=== PATIENT | female | born 1990 ===

== ENCOUNTER 2018-09-27 21:06 | Emergency (ER) | payer OTHER, MEDICAID ==
[2018-09-27 21:41] VITALS: BMI 23.0
[2018-09-27 22:29] LABS: BASO % 0.2 % (0.0-2.0); EOS # 0.1 K/uL (0.0-0.7); EOS % 0.9 % (0.0-4.0); HEMOGLOBIN 10.3 g/dL (12.0-16.0); LYMPH # 0.6 K/uL (1.0-4.3); LYMPH % 6.1 % (20.0-40.0); MEAN CELL VOLUME 87.2 fl (81.0-99.0); MEAN CORPUSCULAR HEMOGLOBIN 28.3 pg (27.0-31.0); MEAN CORPUSCULAR HGB CONC 32.5 g/dL (33.0-37.0); MEAN PLATELET VOLUME 8.8 fl (7.2-11.7); MONO # 0.9 K/uL (0.0-0.8); MONO % 10.2 % (0.0-10.0); NEUT # 7.6 K/uL (1.8-7.0); NEUT % 82.6 % (50.0-75.0); PLATELET COUNT 202 K/uL (130-400); RBC 3.64 Mil/uL (3.80-5.20); RED CELL DISTRIBUTION WIDTH 14.7 % (11.5-14.5); WHITE BLOOD COUNT 9.2 K/uL (4.8-10.8)
[2018-09-27 22:40] LABS: ALBUMIN 3.8 g/dL (3.5-5.0); ALT/SGPT 21 U/L (9-52); AST/SGOT 26 U/L (14-36); BLOOD UREA NITROGEN 8 mg/dl (7-17); CALCIUM 9.1 mg/dL (8.4-10.2); GFR NON-AFRICAN AMERICAN > 60
[2018-09-27 22:41] LABS: SQUAMOUS EPITHIAL < 1 /hpf (0-5); URINE BACTERIA MANY (<OCC); URINE BILIRUBIN NEGATIVE (NEGATIVE); URINE CLARITY CLOUDY (Clear); URINE COLOR YELLOW (YELLOW); URINE GLUCOSE (UA) NEG (NEGATIVE); URINE LEUKOCYTE ESTERASE LARGE Leu/uL (Negative); URINE PROTEIN NEGATIVE (NEGATIVE)
[2018-09-27 22:45] LABS: URINE BLOOD TRACE (NEGATIVE)
[2018-09-27 23:13] LABS: ANISOCYTOSIS MODERATE; BANDS 4 % (0-2); LYMPHOCYTE 8 % (20-50); MONOCYTE 13 % (0-10); NEUTROPHIL 75 % (42-75); PLATELET ESTIMATE NORMAL (NORMAL); POIKILOCYTOSIS SLIGHT; TOTAL CELLS COUNTED 100
[2018-09-27 23:14] LABS: HYPOCHROMIC SLIGHT
[2018-09-28 04:23] VITALS: BP 105/50; PULSE 83; RESP 20; TEMP 99.9; O2SAT 100
--- NOTE | 2018-09-28 11:11 | US ---
Date of service: 09/27/2018 PROCEDURE: Limited obstetrical ultrasound and biophysical profile HISTORY: Dating US, BPP, EFW COMPARISON: None TECHNIQUE: Standard protocol for this study/examination. FINDINGS: Cephalic presentation. Fundal placenta. No evidence of abruption or previa LMP: Unknown Gestational age derived from the following biometric parameters 30 weeks 3 days. ECTOR 12/03/2018 Biparietal diameter 8.08 cm Head circumference 28.22 cm Abdominal circumference 24.69 cm Femur length 5.56 cm Estimated weight 1400 g Calculated cardiac rate 153 beats per min. Closed cervix measuring 5.35 cm FINDINGS: Biophysical profile score 8/8 Based on the followin. breathing movements: 2/2 2. Gross body movement: 2/2 3. tone: 2/2 4. Qualitative amniotic fluid index: 2/2 IMPRESSION: Thirty weeks 3 days live intrauterine gestation. Concordance cannot be ascertained based in the absence of a reliable/ known LMP Biophysical profile score 8/8
--- NOTE | 2018-09-28 11:14 | OBHP ---
Datetime: 09/27/2018 22:00 IP Adm Impression: , intrauterine ; No Active Labor IP Admit Plan: Observation/Evaluation Admit Comment, IP Provider: 28 y/o, , with LMP 03/2018 presents to [facility] because she reports feel ing movements. Patient denies doing any test at home and reports she just found out t hat she is . She reports FM for past 1 month. Denies LOF, VB or CTx. Pt also had subjectiuve fever of 100.5 at home but denies any chills, headache, CP, SOB, nausea, vomiting, diarrhea, urinary symptoms or vaginal discharge. care: None PMHx: Denies PSHx: Denies OBHx: 1 x Allergies: NKDA Medications: None F/H: Denies SOcalHx: Denies PE Gen: NAD Chest: RRR, S1S2 present Lungs: CTAB Abdomen: Gravid, soft, NT Ext: No pedal edema A/P: 28 y/o, , with LMP 03/2018, presents for evaluation. -Newly disgnsoed pregnnacy, No care -EFM and toco monitoring -FHR present, mod variabilty, + Accels, No decels, NO CTX on toco - Dating US, EFW and BPP - CBC, CMP, UA stat - Observation 12:00 AM: US Ob reviewed showed 30 Wks +/- 3 days, IUP, with EFW 3lb 1 oz, BPP 8/8. UA consistet w ith UTI. Patient given Macrobid 100 mg BID x 1 week. Patient to F/u with [facility] for pranatal care. Yamilet ent to be discharged home with ER and labor precautions. patient verbalized understanding. Case discussed with attending Augustus Willson, PGY1 Pelvic Type - PN: Not Done Extremities - PN: Normal Abdomen - PN: Normal Back - PN: Normal Breast - PN: Not Done Lungs - PN: Normal Heart - PN: Normal Thyroid - PN: Not Done Neurologic - PN: Normal HEENT - PN: Normal General - PN: Normal FHR - Baseline A Provider: 150 Contraction Comments Provider: Absent IP Hx Assessment: No Care Vital Signs Provider: Reviewed; Within Normal Limits IP Chief Complaint: evaluation NICHD Variability Prov Fetus A: Moderate 6-25bpm NICHD Accel Fetus A IP Provider: 10X10 FHR Category Provider Fetus A: Category I NICHD Decel Fetus A IP Provider: None Genitourinary Exam: Not Done DTRs - PN: Not Done
== END 2018-09-28 | disposition home or self-care (01) ==
LOC: H.EROB2 21:06
DX: O26.92 Pregnancy related conditions, unspecified, second trimester (principal); R50.9 Fever, unspecified; O09.32 Supervision of pregnancy with insufficient antenatal care, second trimester; Z3A.30 30 weeks gestation of pregnancy

== ENCOUNTER 2018-12-09 21:36 | Inpatient (IN) | payer MEDICAID, OTHER ==
[2018-12-09 21:48] VITALS: BMI 28.3
--- NOTE | 2018-12-09 23:17 | OBHP ---
Datetime: 12/09/2018 22:56 IP Adm Impression: Term, intrauterine IP Admit Plan: Admit to unit; Initiate labor induction protocol Admit Comment, IP Provider: 28 yo at 40+6 wks with EDC 12/03/2018 by 30+3 wks u/s done throu [facility] on 09/27/2018. Pt reports that she didn't know that she was until around 13 weeks b ecause she was spotting monthly (?). Pt reports that she went to an clinic around 8 and was told she was 13 weeks at that time and it was too late to have an . Pt reports thaht she didn't go to prental care because she didn't have insurance. Pt reports that she came to [facility] because she has a friend who works in OB who told her she shuld be delivere d by 41 weeks. Pt denies contractions, vaginal bleeding, LOF, and reports movement. Pt went t o [place] for prental care for her first baby. 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 Will order labs and UDS. FHT reactive. GBS unknown. Will start induction with cervidil. Extremities - PN: Normal Abdomen - PN: Normal Lungs - PN: Normal Heart - PN: Normal Neurologic - PN: Normal General - PN: Normal FHR - Baseline A Provider: 120's Membranes, Provider: Intact Contraction Comments Provider: irritability EGA AdmitDate IP: 40.6 Vital Signs Provider: Reviewed IP Chief Complaint: Other NICHD Variability Prov Fetus A: Moderate 6-25bpm NICHD Accel Fetus A IP Provider: 15X15 FHR Category Provider Fetus A: Category I NICHD Decel Fetus A IP Provider: None Dilatation, Provider: 0 Effacement, Provider: 0 Station, Provider: -3 Genitourinary Exam: Normal
--- NOTE | 2018-12-09 23:21 | OBADHP ---
Datetime: 12/09/2018 23:17 IP Chief Complaint Other: Induction of labor IP Adm Impression Other: Late term Admit Comment, IP Provider: 28 yo at 40+6 wks with EDC 12/03/2018 by 30+3 wks u/s done throu [facility] on 09/27/2018. Pt reports that she didn't know that she was until around 13 weeks b ecause she was spotting monthly (?). Pt reports that she went to an clinic around 8 and was told she was 13 weeks at that time and it was too late to have an . Pt reports thaht she didn't go to prental care because she didn't have insurance. Pt reports that [facility] she has a friend who works in OB who told her she shuld be delivere d by 41 weeks. Pt denies contractions, vaginal bleeding, LOF, and reports movement. Pt went t o [place] for prental care for her first baby. 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 Will order labs and UDS. FHT reactive. GBS unknown. Will start induction with cervidil. Extremities - PN: Normal Abdomen - PN: Normal Lungs - PN: Normal Heart - PN: Normal Neurologic - PN: Normal General - PN: Normal FHR - Baseline A Provider: 120's Membranes, Provider: Intact IP Chief Complaint: Other NICHD Variability Prov Fetus A: Moderate 6-25bpm NICHD Accel Fetus A IP Provider: 15X15 FHR Category Provider Fetus A: Category I NICHD Decel Fetus A IP Provider: None Dilatation, Provider: 0 Effacement, Provider: 0 Station, Provider: -3 Genitourinary Exam: Normal EGA AdmitDate IP: 41.0 IP Admit Plan: Admit to unit; Initiate labor induction protocol Datetime: 12/09/2018 22:56 Contraction Comments Provider: irritability Vital Signs Provider: Reviewed IP Adm Impression: Term, intrauterine Datetime: 09/27/2018 22:00 Pelvic Type - PN: Not Done Back - PN: Normal Breast - PN: Not Done Thyroid - PN: Not Done HEENT - PN: Normal IP Hx Assessment: No Care DTRs - PN: Not Done
[2018-12-09] MEDS: Lactated Ringer's 1,000 ML IV SCH (23:44)
[2018-12-10 00:08] LABS: BASO % 0.2 % (0.0-2.0); EOS # 0.1 K/uL (0.0-0.7); EOS % 0.9 % (0.0-4.0); HEMOGLOBIN 9.6 g/dL (12.0-16.0); LYMPH # 1.4 K/uL (1.0-4.3); LYMPH % 13.1 % (20.0-40.0); MEAN CORPUSCULAR HEMOGLOBIN 25.2 pg (27.0-31.0); MEAN CORPUSCULAR HGB CONC 32.1 g/dL (33.0-37.0); MEAN PLATELET VOLUME 9.9 fl (7.2-11.7); MONO # 0.9 K/uL (0.0-0.8); NEUT # 8.6 K/uL (1.8-7.0); NEUT % 77.8 % (50.0-75.0); NRBC % 0.1 % (0.0-0.0); RBC 3.81 Mil/uL (3.80-5.20); RED CELL DISTRIBUTION WIDTH 16.1 % (11.5-14.5); WHITE BLOOD COUNT 11.1 K/uL (4.8-10.8)
[2018-12-10 00:12] LABS: MEAN CELL VOLUME 78.5 fl (81.0-99.0)
[2018-12-10 00:29] LABS: BARBITURATES, UR NEGATIVE (NEGATIVE); BENZODIAZEPINES, UR NEGATIVE (NEGATIVE); OPIATES, UR NEGATIVE (NEGATIVE); PHENCYCLIDINE, UR NEGATIVE (NEGATIVE)
[2018-12-10] MEDS ORDERED: Nalbuphine HCL 10 mg/ml Ampule IVP PRN (03:05)
[2018-12-10] MEDS: Lactated Ringer's 1,000 ML IV SCH ×3 (05:00→07:41)
[2018-12-10] MEDS ORDERED: Bupivacaine HCl 0.25% PF (10 ml) Inj ONE (06:27)
[2018-12-10] MEDS ORDERED: Fentanyl/Bupivacaine HCl 250 ML EPI ONE (06:27)
[2018-12-10] MEDS ORDERED: Oxytocin 30 UNIT in NS 500 ml 30 UNITS/500 ML BAG IV ONE ×2 (10:15→11:55)
--- NOTE | 2018-12-10 10:28 | OBPN ---
Datetime: 12/10/2018 10:18 IP Progress Impression: Normal progression of labor IP Informed Consent Obtain: Vaginal Delivery IP Procedures: Artificial ROM; Sterile Vag Exam IP Progress Plan: Continue present management Membranes, Provider: Ruptured Amniotic Fluid Color, Provider: Bloody Contraction Comments Provider: q 1-3 mins FHR - Baseline A Provider: 145 IP Progress Note Comment: Patient feeling comfortable, 5cm and ruptured FHR = 145 mod sury, no accels, +early decelerations TOCO = contraction q 1-3 mins A/P 1. Patient now 5cm and ruptured 2. CEFM and TOCO 3. Re-evaluate as needed Vital Signs Provider: Reviewed; Within Normal Limits NICHD Variability Prov Fetus A: Moderate 6-25bpm Dilatation, Provider: 5 Effacement, Provider: 50 Station, Provider: -1 NICHD Decel Fetus A IP Provider: Early Datetime: 12/09/2018 23:17 NICHD Accel Fetus A IP Provider: 15X15 FHR Category Provider Fetus A: Category I
[2018-12-10] MEDS ORDERED: Oxycodone/Acetaminophen 5/325 mg Tab PO PRN ×2 (14:53→19:44)
[2018-12-10] MEDS ORDERED: Benzocaine/Menthol SPRAY TOP PRN ×2 (14:53→19:44)
--- NOTE | 2018-12-10 14:54 | OBDS ---
DELIVERY PERSONNEL Delivery Doctor: Gume Barillas MD Anesthesiologist: Candi Rinaldi MD MATERNAL INFORMATION Delivery Anesthesia: Epidural Medications in Delivery: pitocin 30 units in 500 ml Provider Comments: of live infant over intact perineum, MARQUIS presentation, followed by shoulders and rest of infant atraumatically, mouth and nose suctioned on mother's chest, cord clamped and cut, cord blood obtained, placenta delivered spontaneously, fundus firm, EBL = 100mL, second degree lacer ation repaired with 2-0 vicryl rapide and right labial laceration repaired with same stich, pt tolera kasi procedure well LABOR SUMMARY EDC: 12/03/2018 00:00 No. Babies in Womb: 1 Attempted: No Labor Anesthesia: Epidural LABOR INFORMATION Reason for Induction: Postterm; Other Reason for Induction Other: Pt uncertain of EDC. Onset of Labor: 12/10/2018 11:00 Complete Dilatation: 12/10/2018 13:05 Cervical Ripening Agents: Cervidil Oxytocin: N/A Group B Beta Strep: Not Done Antibiotics # of Doses: 0 Antibiotics Time of Last Dose: N/A Steroids Given: None Reason Steroids Not Administered: Not Applicable MEMBRANES Membranes Rupture Method: Artificial Rupture of Membranes: 12/10/2018 09:46 Length of Rupture (hrs): 4.80 Amniotic Fluid Color: Clear Amniotic Fluid Amount: Large Amniotic Fluid Odor: Foul (Annotations: Vaginal odor present prior to AROM.) STAGES OF LABOR Stage 1 hrs: 2 Stage 1 min: 5 Stage 2 hrs: 1 Stage 2 min: 29 Stage 3 hrs: 0 Stage 3 min: 4 Total Time in Labor hrs: 3 Total Time in Labor min: 38 VAGINAL DELIVERY Episiotomy: None BABY A INFORMATION Delivery Date/Time: 12/10/2018 14:34 Method of Delivery: Vaginal Born in Route : No : N/A Forceps: N/A Vacuum Extraction: N/A Shoulder Dystocia : No SHOULDER DYSTOCIA BABY A Delivery Date/Time: 12/10/2018 14:34 PRESENTATION/POSITION BABY A Presentation: Cephalic Cephalic Presentation: Vertex Vertex Position: Left Occipital Anterior Breech Presentation: N/A PLACENTA INFORMATION BABY A Placenta Delivery Time : 12/10/2018 14:38 Placenta Method of Delivery: Spontaneous Placenta Status: Delivered SCORES BABY A Heart Rate 1 min: >100 bpm Resp Effort 1 min: Good Cry Reflex Irritability 1 min: Cough or Sneeze or Pulls Away Muscle Tone 1 min: Active Motion Color 1 min: Body [place], Extremities Blue Resuscitation Effort 1 min: N/A SCORE 1 MIN: 9 Heart Rate 5 min: >100 bpm Resp Effort 5 min: Good Cry Reflex Irritability 5 min: Cough or Sneeze or Pulls Away Muscle Tone 5 min: Active Motion Color 5 min: Body [place], Extremities Blue Resuscitation Effort 5 min: N/A SCORE 5 MIN: 9 INFANT INFORMATION BABY A Gestational Age at Delivery: 41.0 Gestational Status: Post-term Outcome : Liveborn Condition : Stable Sex: Male IDENTIFICATION/MEDS BABY A ID Band Number: [id number] ID Band Location: Left Leg; Left Arm CORD INFORMATION BABY A No. 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
[2018-12-10 20:53] LABS: BASO % 0.1 % (0.0-2.0); EOS # 0.1 K/uL (0.0-0.7); EOS % 0.3 % (0.0-4.0); HEMOGLOBIN 8.7 g/dL (12.0-16.0); LYMPH # 1.1 K/uL (1.0-4.3); LYMPH % 6.6 % (20.0-40.0); MEAN CELL VOLUME 78.7 fl (81.0-99.0); MEAN CORPUSCULAR HEMOGLOBIN 25.3 pg (27.0-31.0); MEAN CORPUSCULAR HGB CONC 32.2 g/dL (33.0-37.0); MEAN PLATELET VOLUME 9.7 fl (7.2-11.7); MONO # 1.6 K/uL (0.0-0.8); MONO % 9.9 % (0.0-10.0); NEUT # 13.6 K/uL (1.8-7.0); NEUT % 83.1 % (50.0-75.0); PLATELET COUNT 227 K/uL (130-400); RBC 3.43 Mil/uL (3.80-5.20); RED CELL DISTRIBUTION WIDTH 16.1 % (11.5-14.5); WHITE BLOOD COUNT 16.4 K/uL (4.8-10.8)
[2018-12-10 22:09] LABS: BANDS 4 % (0-2); EOSINOPHIL 1 % (0-7); LYMPHOCYTE 10 % (20-50); MONOCYTE 10 % (0-10); NEUTROPHIL 75 % (42-75); PLATELET ESTIMATE NORMAL (NORMAL); TOTAL CELLS COUNTED 100
[2018-12-10 22:10] LABS: ANISOCYTOSIS MODERATE; HYPOCHROMIC SLIGHT; MICROCYTOSIS MODERATE; POIKILOCYTOSIS SLIGHT
[2018-12-10 22:11] LABS: BURR CELLS SLIGHT
--- NOTE | 2018-12-11 08:00 | OBPPN ---
Datetime: 12/11/2018 05:19 PP Pain Prov: Within normal limits PP Nausea Prov: Denies PP Flatus Prov: Yes PP BM Prov: No PP Breasts Prov: Not Done PP Heart Prov: Normal PP Lungs Prov: Normal PP Abdomen/Uterus Prov: Normal PP Lochia Prov: Normal PP Vulva/Perineum Prov: Normal PP CVA Tenderness Prov: Normal PP Extremities Prov: Normal PP C/S Incision Prov: Not Applicable PP Progress Prov: Normal PP Comments Phys Exam Prov: See note PP Impression Prov: Normal progression PP Plan Prov: Continue present management PP Progress Note Prov: S: 28 YO female , S/P NVD with PPD1. Patient seen and examined at bedside this morning. Patient has no acute complaints, reports that the pain is controlled with pain medicat ion. Patient is ambulating w/o difficulties. Pt is bottle feeding, she is tolerating regular diet. Lo len like menses in volume. +Flatus, -BM. Denies fevers, chills, dizziness, chest pain, SOB, N/V/D, h ematuria or dysuria. Pt would like circumcision VS: stable GEN: NAD Cardio: RRR, S1S2 present, no murmurs noted Lungs: clear breath sounds b/l, no wheezing Abdomen: BS+, appropriate tenderness to palpation. Uterus is firm and at the level of the umbilicu s. EXT: No edema, Shaka's negative NEURO/PSYCH: AAOx3, no grossly focal deficits, preserved affect and mood. A/P: 28 YO female , S/P NVD with PPD1. Pt is stable, doing well, afebrile, tolerating pain with med ication, hemodynamically stable. -Circumcision -encouraged ambulation -Motrin 600mg po q6h for pain as per pain scale -Encourage -Continue vit Ysabri PGY1 Case discussed with attending [facility]. Pt seen on rounds agree with note MAHNDO Vital Signs Provider PP: Reviewed; Within Normal Limits
[2018-12-11] MEDS ORDERED: Multivitamin With Minerals Tab PO SCH (09:00)
[2018-12-11] MEDS: Multivitamin With Minerals Tab PO SCH (09:35)
[2018-12-12] MEDS: Multivitamin With Minerals Tab PO SCH (08:07)
--- NOTE | 2018-12-12 09:26 | OBPPN ---
Datetime: 12/12/2018 05:25 PP Pain Prov: Within normal limits PP Nausea Prov: Denies PP Flatus Prov: Yes PP BM Prov: No PP Breasts Prov: Not Done PP Heart Prov: Normal PP Lungs Prov: Normal PP Abdomen/Uterus Prov: Normal PP Lochia Prov: Normal PP Vulva/Perineum Prov: Normal PP CVA Tenderness Prov: Normal PP Extremities Prov: Normal PP C/S Incision Prov: Not Applicable PP Progress Prov: Normal PP Comments Phys Exam Prov: See Note PP Impression Prov: Normal progression PP Plan Prov: Discharge PP Progress Note Prov: 28 YO female , S/P NVD with PPD2. Patient seen at bedside today. No compl ains for today. She report pain is tolerable with pain medication. Patient is ambulating w/o difficul ties. Pt is bottle feeding, she is tolerating regular diet. Lochia like menses in volume. +Flatus, -B M. Denies fevers, chills, dizziness, chest pain, SOB, N/V/D, hematuria or dysuria. VS: stable GEN: NAD Cardio: RRR, S1S2 present, no murmurs noted Lungs: clear breath sounds b/l, no wheezing Abdomen: BS+, appropriate tenderness to palpation. Uterus is firm below the level of the umbilicus . EXT: No edema, Shaka's negative NEURO/PSYCH: AAOx3, no grossly focal deficits, preserved affect and mood. A/P: 28 YO female , S/P NVD with PPD2. Pt is stable, doing well, afebrile, tolerating pain with med ication, hemodynamically stable. -encouraged ambulation -Motrin 600mg po q6h for pain as per pain scale -Encourage -Continue vit -Will discharge today - Patient need to follow up with PCP for post care in 4-6wk Ysabri PGY1 Case discussed with attending Patient was seen with the resident I agree with the note Vital Signs Provider PP: Reviewed; Within Normal Limits
--- NOTE | 2018-12-12 09:26 | OBDCSUM ---
Datetime: 12/12/2018 05:28 Discharged to, Provider: Home Follow up at, Provider: julia Fagan Instr Activity: Normal activity; May be up to bathroom; May be up for meals; May Shower Disch Instr Diet: Regular Discharge Instructions, Provider: Routine instructions given Discharge Diagnosis, Provider: Term Delivered Discharge Time: 12/12/2018 10:00 Follow up in weeks, Provider: 4-6 week Disch Activity Restrictions: No exercising; No lifting; Minimize walking; Minimize stair-climbing; N o sexual activity; Nothing in vagina - [place], tampons, douche Discharge Comment, Provider: Diagnosis: 28 y/o s/p NVD of a viable baby male on 12/10/18 with EGA: 41 weeks. : Male, [id number] Post- D/C Summary: Patient did not have care. But there was no complication during delivery and post care. Lochia equal menses in volume. Pt able to pass gas, ambulate and pass urine. Tolerate regular diet, no SHAY, CP, SOB, N/V, fever or other acute complaint at this time. Fundu s firm below umbilicus level. Pt is hemodynamically stable. H/H : 8.7/27.0 Discharge Instructions given to patient: Patient does not want to breast feed but, breast feeding is encouraged PNV 1 tab PO daily May take Ibuprofen OTC 600mg Q 6h prn for mild-mod pain if needed ED precautions: If excessive bleeding, pain that does not get relief, fever >100.4, palpitations, SOB, CP or other concerning symptom go to the ED PT was urged if feeling sad, mood swing, depression, neglect of baby, suicidal thoughts, homicidal thoughts go to ER or call 911 for help Pt should go to her Primary care doctor if have difficulty with breast feeding F/U in 4-6 week for PP visit with you ANADGeorgia Salas PGY1 Case discussed with Attending Patient was seen with the resident I agree with the note
[2018-12-12 22:31] VITALS: BP 104/60; PULSE 64; RESP 18; TEMP 97.9; O2SAT 100
== END 2018-12-12 13:50 | disposition home or self-care (01) | DRG 373 ==
LOC: H.EROB2 21:36 → H.L&D 22:45 → H.OB/GYN 12-10 18:26
PROVIDERS: ADMIT Obstetrics & Gynecology; ATTEND Obstetrics & Gynecology
PROC: 4A1HXCZ Monitoring of Products of Conception, Cardiac Rate, External Approach (ICD-10-PCS; 2018-12-09)
PROC: 10E0XZZ Delivery of Products of Conception, External Approach (ICD-10-PCS; principal; 2018-12-10)
PROC: 0KQM0ZZ Repair Perineum Muscle, Open Approach (ICD-10-PCS; 2018-12-10)
DX: O76 Abnormality in fetal heart rate and rhythm complicating labor and delivery (principal); O70.1 Second degree perineal laceration during delivery; Z37.0 Single live birth; Z3A.40 40 weeks gestation of pregnancy